=== PATIENT | female | born 1960 | race Caucasian/White ===

== ENCOUNTER 2017-03-29 15:50 | Emergency (ER) | payer BC, OTHER ==
--- NOTE | 2017-03-29 17:04 | EDM.PDOC ---
ED HPI GENERAL MEDICAL PROBLEM - General Chief Complaint: General Stated Complaint: LEFT FOOT PAIN Time Seen by Provider: 03/29/17 15:55 Source of Information: Reports: Patient History Limitations: Reports: No Limitations - History of Present Illness INITIAL COMMENTS - FREE TEXT/NARRATIVE: Patient is a 56-year-old female who is seen in the ER status post left foot injury complains of left foot pain on the medial aspect metatarsal area states that part of a crate fell on her foot at work Onset: Today Duration: Hour(s): Location: Reports: Lower Extremity, Left Quality: Reports: Ache, Throbbing Severity: Mild Improves with: Reports: Other Worsens with: Reports: Movement Context: Reports: Trauma, 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 Left Feet Pain Score (Numeric/FACES): 8 - Related Data Allergies Allergy/AdvReac Type Severity Reaction Status Date / Time codeine Allergy Headache Verified 03/29/17 16:02 Home Meds: Home Meds Methotrexate 5 mg PO MOTU 03/29/17 [History] Methotrexate 5 mg PO TU@12 03/29/17 [History] Propranolol [Inderal] 40 mg PO DAILY 03/29/17 [History] Social & Family History - Tobacco Use Smoking Status *Q: Current Every Day Smoker Years of Tobacco use: 40 Packs/Tins Daily: 1 - Caffeine Use Caffeine Use: Reports: Energy Drinks, Soda - Recreational Drug Use Recreational Drug Use: No ED ROS GENERAL - Review of Systems Review Of Systems: See Below Constitutional: Reports: No Symptoms HEENT: Reports: No Symptoms Respiratory: Reports: No Symptoms Cardiovascular: Reports: No Symptoms Endocrine: Reports: No Symptoms GI/Abdominal: Reports: No Symptoms : Reports: No Symptoms Musculoskeletal: Reports: Foot Pain Skin: Reports: No Symptoms Neurological: Reports: No Symptoms Psychiatric: Reports: No Symptoms ED EXAM, GENERAL - Physical Exam Exam: See Below Exam Limited By: No Limitations General Appearance: Alert, WD/WN, No Apparent Distress Eye Exam: Bilateral Eye: EOMI, PERRL Ears: Normal External Exam, Normal Canal, Hearing Grossly Normal, Normal TMs Ear Exam: Bilateral Ear: Auricle Normal, Canal Normal, TM normal Nose: Normal Inspection, Normal Mucosa, No Blood Throat/Mouth: Normal Inspection, Normal Lips, Normal Teeth, Normal Gums, Normal Oropharynx, Normal Voice, No Airway Compromise Head: Atraumatic, Normocephalic Neck: Normal Inspection, Supple, Non-Tender, Full Range of Motion Respiratory/Chest: No Respiratory Distress, Lungs Clear, Normal Breath Sounds, No Accessory Muscle Use, Chest Non-Tender Cardiovascular: Normal Peripheral Pulses, Regular Rate, Rhythm, No Edema, No Gallop, No JVD, No Murmur, No Rub GI/Abdominal: Normal Bowel Sounds, Soft, Non-Tender, No Organomegaly, No Distention, No Abnormal Bruit, No Mass (Female) Exam: Deferred Rectal (Female) Exam: Deferred Back Exam: Normal Inspection, Full Range of Motion, NT Extremities: Other (Left foot pain with palpation and motion) Neurological: Alert, Oriented, CN II-XII Intact, Normal Cognition, Normal Gait, Normal Reflexes, No Motor/Sensory Deficits Psychiatric: Normal Affect, Normal Mood Skin Exam: Warm, Dry, Intact, Normal Color, No Rash Course - Vital Signs Last Recorded V/S: Last Vital Signs Temp 97.8 F 03/29/17 15:51 Pulse 68 03/29/17 15:51 Resp 16 03/29/17 15:51 BP 137/75 03/29/17 15:51 Pulse Ox 100 03/29/17 15:51 - Orders/Labs/Meds Meds: Medications Discontinued Medications Generic Name Dose Route Start Last Admin Trade Name Sandeep PRN Reason Stop Dose Admin Hydrocodone Bitart/Acetaminophen 1 tab 03/29/17 17:26 03/29/17 17:31 Jackson 325-5 Mg PO 03/29/17 17:27 1 tab ONETIME ONE Administration Departure - Departure Time of Disposition: 17:03 Disposition: Home, Self-Care 01 Condition: Good Clinical Impression: Strain of left foot Qualifiers: Encounter type: initial encounter Qualified Code(s): S96.912A - Strain of unspecified muscle and tendon at ankle and foot level, left foot, initial encounter - Discharge Information Instructions: Acetaminophen; Hydrocodone tablets or capsules, Foot Contusion, [id number] Referrals: Garima Morataya PA [Primary Care Provider] - Forms: ED Department Discharge Care Plan Goals: X-ray obtained reveal no fracture of left foot. soft tissue contusion will send home on a [employer] Walker and hydrocodone/Tylenol 5/325 one tablet every 6 hours as needed for pain. Prescription given. Take with food. 1 tab given in the ER. See work excuse.
[2017-03-29] MEDS ORDERED: Acetaminophen/HYDROcodone 325-5 MG Tab PO ONE (17:26)
== END 2017-03-29 18:00 | disposition home or self-care (01) ==
LOC: LL.ED 15:50
DX: S96.912A Strain of unspecified muscle and tendon at ankle and foot level, left foot, initial encounter (principal); Z88.5 Allergy status to narcotic agent; F17.210 Nicotine dependence, cigarettes, uncomplicated; Z79.899 Other long term (current) drug therapy; W20.8XXA Other cause of strike by thrown, projected or falling object, initial encounter
CPT/HCPCS: 73630; 99283; A9270

== ENCOUNTER 2018-09-15 09:59 | Inpatient (IN) | payer BC ==
[2018-09-15] MEDS ORDERED: Sodium Chloride 0.9% 10 ML Syringe FLUSH PRN (10:00)
[2018-09-15] MEDS ORDERED: Ondansetron 4 MG/2 ML SDV IVPUSH PRN (10:00)
[2018-09-15] MEDS ORDERED: Lactated Ringers 1,000 ML IV SCH (10:00)
[2018-09-15] MEDS ORDERED: Iopamidol 612 MG/ML 100 ML Bottle IVPUSH ONE (10:34)
[2018-09-15] MEDS: Morphine 2 MG/ML Syringe IVPUSH PRN ×2 (10:52→13:07)
[2018-09-15 11:04] LABS: CHLORIDE,CL 100 mmol/L (98-107); SODIUM,NA 137 mmol/L (136-145)
--- NOTE | 2018-09-15 11:13 | PCM.HP ---
H&P History of Present Illness - General Date of Service: 09/15/18 Admit Problem/Dx: Admission Diagnosis/Problem Admission Diagnosis/Problem Obstruction of colon Source of Information: Patient, EMS Notes Reviewed, Family History Limitations: Reports: No Limitations - History of Present Illness Initial Comments - Free Text/Narative: Patient is admitted for abdominal pain, n/v and dehydration. Patient initially presented to the ER at [facility] on weekend of August 20, diagnosed with large bowel obstruction with recommendations to have a colonoscopy. Patient had BM with colonoscopy prep but ended up with constipation again. Was seen in the [place] ER on 09/07/2018 started on reglan as needed and then sent home. The patient is set up for a colonoscopy September 21 in [place] and didnt want one done in [place]. With review of the ER note, patient refused referral to GI at the time of her ER visit. Patient's spouse is concerned as the patient is not eating, has n/v, weight loss and last BM was well over 2 weeks ago. Patient has been using OTC stool softeners, magnesium citrate and miralax without any relief. The patient rates pain 9/10. No fevers Onset of Symptoms: Reports: Gradual Location: Reports: Abdomen Quality: Reports: Sharp Severity: Severe Improves with: Reports: Rest Worsens with: Reports: Movement Associated Symptoms: Reports: Loss of Appetite, Nausea/Vomiting Lower Abdominal Pain Score (Numeric/FACES): 10 - Related Data Allergies/Adverse Reactions: Allergies Allergy/AdvReac Type Severity Reaction Status Date / Time codeine Allergy Headache Verified 03/29/17 16:02 Home Medications: Home Meds Methotrexate 5 mg PO MO@18 03/29/17 [History] Methotrexate 5 mg PO MOTU@08 03/29/17 [History] Propranolol [Inderal] 40 mg PO DAILY 03/29/17 [History] Cholecalciferol (Vitamin D3) [Vitamin D3] 2,000 unit PO DAILY 09/15/18 [History] Multivit with Iron,Minerals [Spectravite Senior] 1 each PO DAILY 09/15/18 [ History] Temazepam [Restoril] 15 mg PO BEDTIME PRN 09/15/18 [History] Past Medical History Cardiovascular History: Reports: Hypertension Gastrointestinal History: Reports: Bowel Obstruction Dermatologic History: Reports: Psoriasis - Past Surgical History GI Surgical History: Reports: Appendectomy Female Surgical History: Reports: Salpingo-Oophorectomy Neurological Surgical History: Reports: Spinal Fusion (spinal fusion through the abdomen) Social & Family History - Family History GI: Reports: Other (See Below) (multiple family members (sisters) with gallbladder disease) - Caffeine Use Caffeine Use: Reports: Energy Drinks, Soda H&P Review of Systems - Review of Systems: Review Of Systems: See Below Free Text/Narrative: Patient complains of generalized abdominal pain, not passing flatus. General: Reports: Weakness, Decreased Appetite, Weight Loss HEENT: Reports: No Symptoms Pulmonary: Reports: No Symptoms Cardiovascular: Reports: No Symptoms Gastrointestinal: Reports: Abdominal Pain, Constipation, Nausea, Vomiting Genitourinary: Reports: No Symptoms Musculoskeletal: Reports: No Symptoms Skin: Reports: No Symptoms Psychiatric: Reports: No Symptoms Neurological: Reports: No Symptoms Hematologic/Lymphatic: Reports: No Symptoms Exam - Exam Exam: See Below - Vital Signs Vital Signs: Last Vital Signs Temp 98.6 F 09/15/18 10:29 Pulse 112 H 09/15/18 10:29 Resp 20 09/15/18 10:29 BP 150/108 H 09/15/18 10:29 Pulse Ox 97 09/15/18 10:29 - Exam General: Alert, Oriented, Mild Distress HEENT: Conjunctiva Clear, Hearing Intact, Pupils Reactive Neck: Supple, Trachea Midline Lungs: Clear to Auscultation, Normal Respiratory Effort Cardiovascular: Regular Rate, Regular Rhythm, Normal S1, Normal S2 GI/Abdominal Exam: No Organomegaly, Distended (abdomen mildly distended), Tender (hyperactive bowel sounds times 4) Back Exam: Normal Inspection, Full Range of Motion Extremities: Normal Inspection, Normal Range of Motion, Non-Tender, No Pedal Edema, Normal Capillary Refill Peripheral Pulses: 2+: Dorsalis Pedis (L), Dorsalis Pedis (R) Skin: Warm, Dry, Intact (dry mucous membranes) Neurological: Cranial Nerves Intact, Reflexes Equal Bilateral, Strength Equal Bilateral Neuro Extensive - Mental Status: Alert, Oriented x3, Normal Mood/Affect, Normal Cognition, Memory Intact Neuro Extensive - Motor, Sensory, Reflexes: CN II-XII Intact, Normal Gait, Normal Reflexes Psychiatric: Alert, Normal Affect, Normal Mood - Patient Data Lab Results Last 24 hrs: Laboratory Results - last 24 hr 09/15/18 Range/Units 10:32 WBC 11.3 H (4.0-10.2) K/uL RBC 4.61 (3.77-5.09) M/uL Hgb 15.1 (11.7-15.5) g/dL Hct 43.7 (34.0-46.0) % MCV 94.8 (84.0-98.0) fL MCH 32.8 (28.2-33.3) pg MCHC 34.6 (31.7-36.0) g/dL RDW 13.9 (11.2-14.1) % Plt Count 216 (150-350) K/uL Neut % (Auto) 83.7 H (45.0-80.0) % Lymph % (Auto) 11.5 (10.0-50.0) % Whitman % (Auto) 4.2 (2.0-14.0) % Eos % (Auto) 0.4 (0.0-5.0) % Baso % (Auto) 0.2 (0.0-2.0) % Neut # (Auto) 9.48 H (1.40-7.00) K/uL Lymph # (Auto) 1.30 (0.50-3.50) K/uL Whitman # (Auto) 0.48 (0.00-1.00) K/uL Eos # (Auto) 0.04 (0.00-0.50) K/uL Baso # (Auto) 0.02 (0.00-0.20) K/uL Result Diagrams: 09/15/18 10:32 09/15/18 10:32 - Problem List (1) Bowel obstruction SNOMED Code(s): 72594157 ICD Code: K56.609 - UNSP INTESTNL OBST, UNSP TO PARTIAL VERSUS COMPLETE OBST Status: Acute Priority: High Qualifiers: Intestinal obstruction type: other intestinal obstruction (2) Dehydration SNOMED Code(s): 22559185 ICD Code: E86.0 - DEHYDRATION Status: Acute (3) Nausea & vomiting SNOMED Code(s): 95023422 ICD Code: R11.2 - NAUSEA WITH VOMITING, UNSPECIFIED Status: Acute Problem List Initiated/Reviewed/Updated: Yes Orders Last 24hrs: Active Orders 24 hr Category Date Time Status Patient Status [ADT] Routine ADT 09/15/18 10:00 Active Ambulate [RC] ASDIRECTED Care 09/15/18 10:00 Active Antiembolic Devices [RC] PER UNIT ROUTINE Care 09/15/18 10:05 Active Communication Order [RC] ROUTINE Care 09/15/18 10:08 Active Intake and Output [RC] QSHIFT Care 09/15/18 10:01 Active May Shower [RC] ASDIRECTED Care 09/15/18 10:00 Active Oxygen Therapy [RC] PRN Care 09/15/18 10:00 Active Peripheral IV Care [RC] . DIRECTED Care 09/15/18 10:05 Active VTE/DVT Education [RC] PER UNIT ROUTINE Care 09/15/18 10:00 Active Vital Signs [RC] Q4H Care 09/15/18 10:00 Active Nothing per Oral Now Diet [DIET] Diet 09/15/18 Breakfast Active Abdomen 2V AP Flat Upright [CR] Routine Exams 09/15/18 10:00 Ordered Abdomen Pelvis w wo Cont [CT] Routine Exams 09/15/18 10:07 Ordered AMYLASE [CHEM] Routine Lab 09/15/18 10:32 Received C-REACTIVE PROTEIN [CHEM] Routine Lab 09/15/18 10:32 Received COMPREHENSIVE METABOLIC PN,CMP [CHEM] Routine Lab 09/15/18 10:32 Received CULTURE URINE [RM] Stat Lab 09/15/18 10:00 Ordered LIPASE [CHEM] Routine Lab 09/15/18 10:32 Received UA W/MICROSCOPIC [URIN] Routine Lab 09/15/18 10:00 Ordered Lactated Ringers [Ringers, Lactated] 1,000 ml Med 09/15/18 10:00 Active IV ASDIRECTED Morphine Med 09/15/18 10:00 Active 2 mg IVPUSH Q2H PRN Ondansetron [Zofran] Med 09/15/18 10:00 Active 4 mg IVPUSH Q6H PRN Propranolol Med 09/16/18 08:00 Ordered 40 mg PO DAILY Sodium Chloride 0.9% [Saline Flush] Med 09/15/18 10:00 Active 10 ml FLUSH ASDIRECTED PRN Antiembolic Hose [OM.PC] Per Unit Routine Oth 09/15/18 10:01 Ordered Peripheral IV Insertion Adult [OM.PC] Routine Oth 09/15/18 10:00 Ordered Resuscitation Status Routine Resus Stat 09/15/18 10:00 Ordered Medication Orders Lactated Ringer's (Ringers, Lactated) 1,000 mls @ 125 mls/hr IV ASDIRECTED ESA Last Admin: 09/15/18 10:52 Dose: 125 mls/hr Morphine Sulfate (Morphine) 2 mg IVPUSH Q2H PRN PRN Reason: Pain (severe 7-10) Last Admin: 09/15/18 10:52 Dose: 2 mg Non-Formulary Medication (Propranolol) 40 mg PO DAILY ESA Ondansetron HCl (Zofran) 4 mg IVPUSH Q6H PRN PRN Reason: Nausea/Vomiting Last Admin: 09/15/18 10:52 Dose: 4 mg Sodium Chloride (Saline Flush) 10 ml FLUSH ASDIRECTED PRN PRN Reason: Keep Vein Open Assessment/Plan Comment:: Patient refused to go to [place] initially as she was in [place] at the ER last week and got sent home. Admitted to the hospital for IV fluids and repeat CT scan on abd/pelvis with findings noted severe colon obstruction, patient is needing to be transferred to [place] for GI and surgeon workup. Discussed with the patient and spouse and agreed to the transfer. Talked to Dr Small at [facility] who accepted the patient. transfer by ambulance due to IV fluids and needing antiemetic and pain medications. Shelly Ascencio,SURTASS ANALYST
[2018-09-16] MEDS ORDERED: Propranolol 20 MG Tab PO SCH (08:00)
== END 2018-09-15 14:45 | DRG 247 ==
LOC: LL.MS 10:12
PROVIDERS: ADMIT Family Medicine; ATTEND Family Medicine
DX: K56.609 Unspecified intestinal obstruction, unspecified as to partial versus complete obstruction (principal); E86.0 Dehydration; I10 Essential (primary) hypertension; Z88.6 Allergy status to analgesic agent; Z79.899 Other long term (current) drug therapy; Z98.1 Arthrodesis status
CPT/HCPCS: 36415; 74019; 74177; 80053; 81001; 82150; 83690; 85025; 86140; 87086; J2270; J2405; J7120; Q9967

== ENCOUNTER 2019-11-11 07:58 | Day surgery (SDC) | payer BC ==
[~2019-11-11 07:58] MED LIST: Lactated Ringers 1,000 ML IV SCH; Sodium Chloride 0.9% 10 ML Syringe FLUSH PRN
[2019-11-11] MEDS ORDERED: Midazolam 1 MG/ML 2 ML SDV ONE ×2 (08:29→09:00)
[2019-11-11] MEDS ORDERED: Propofol 200 MG/20 ML SDV ONE ×2 (08:29→09:00)
--- NOTE | 2019-11-11 09:08 | PCM.PN ---
- General Info Date of Service: 11/11/19 - Review of Systems Systems Review Comment:: 59-year-old female here for colonoscopy. She has had change in bowel pattern with increasing constipation. She is also had a prior colon resection for obstruction and has not had a prior complete colonoscopy. She is medically stable to proceed today. Her recent history and physical is reviewed and no significant changes are noted. I have discussed the proposed colonoscopy with the patient. Risks such as but not limited to bleeding and GI injury reviewed. She agrees to proceed. - Patient Data Vitals - Most Recent: Last Vital Signs Temp 97.5 F 11/11/19 08:43 Pulse 68 11/11/19 08:43 Resp 18 11/11/19 08:43 BP 142/81 H 11/11/19 08:43 Pulse Ox 97 11/11/19 08:43 Weight - Most Recent: 74.389 kg Med Orders - Current: Current Medications Lactated Ringer's (Ringers, Lactated) 1,000 mls @ 125 mls/hr IV ASDIRECTED ESA Last Admin: 11/11/19 08:34 Dose: 125 mls/hr Documented by: Sodium Chloride (Saline Flush) 10 ml FLUSH ASDIRECTED PRN PRN Reason: Keep Vein Open Discontinued Medications Midazolam HCl (Versed 1 Mg/Ml) Confirm Administered Dose 2 mg .ROUTE .STK-MED ONE Stop: 11/11/19 08:30 Propofol (Diprivan 20 Ml) Confirm Administered Dose 200 mg .ROUTE .STK-MED ONE Stop: 11/11/19 08:30 Sepsis Event Note - Focused Exam Vital Signs: Vital Signs Temp Pulse Resp BP Pulse Ox 11/11/19 08:43 97.5 F 68 18 142/81 H 97 - Problem List Review Problem List Initiated/Reviewed/Updated: Yes - Assessment Assessment:: Change in bowel pattern Complete colon cancer screening - Plan Plan:: Colonoscopy
--- NOTE | 2019-11-11 09:44 | PCM.OPNOTE ---
- General Post-Op/Procedure Note Date of Surgery/Procedure: 11/11/19 Operative Procedure(s): Incomplete Colonoscopy to Sigmoid Anastomosis Findings: Anastomotic Stricture preventing advancement of the scope past that point Pre Op Diagnosis: Colon Cancer Screening Post-Op Diagnosis: Sigmoid Colon Anastomotic Stricture Anesthesia Technique: MAC Primary Surgeon: Eliseo Rachel Pathology: none EBL in mLs: 0 Complications: None Condition: Good
--- NOTE | 2019-11-11 12:34 | OR ---
Date of Procedure: 11/11/2019 PREOPERATIVE DIAGNOSIS: Colon cancer screening with change in bowel pattern. POSTOPERATIVE DIAGNOSIS: Anastomotic stricture. OPERATION PERFORMED: Incomplete colonoscopy to sigmoid anastomotic stricture. INDICATIONS FOR SURGERY: This 59-year-old female is here for full colonoscopy. She underwent a sigmoid colon resection approximately a year ago and has never had a complete colonoscopy. She has also noted difficulty with constipation. FINDINGS: At approximately the 15 cm level, the patient's anastomosis was clearly identified and there is a significant stricture noted at this level. This stricture is too small to even allow the pediatric colonoscope to pass. No mass is identified, and the mucosa of the rectum distal to the stricture appeared normal as did the visualized mucosa proximal to the stricture as seen looking through the stricture. DESCRIPTION OF PROCEDURE: The patient was taken to the operating room. She was given intravenous sedation and with her in the left lateral decubitus position, a digital rectal exam was performed showing no rectal masses. The Olympus colonoscope was inserted into the rectum and retroflexed examination of the rectal canal was performed. The scope was then advanced to the region of the anastomosis approximately 15 cm from the anal verge and the anastomosis was clearly visualized. An attempt was made to pass the adult colonoscope through the anastomotic stricture, but the stricture was too narrow and would not allow the scope to pass. A pediatric colonoscope was then selected. It was inserted into the rectum and advanced under direct visualization to the level of the stricture. Even the pediatric scope would not advance past the stricture as the stricture was too narrow to allow this to traverse it. With the available scopes not able to pass through the stricture, the scope was removed and the patient was taken from the operating room in satisfactory condition. ESTIMATED BLOOD LOSS: Zero. COMPLICATIONS: None. PROGNOSIS: Good. COMMENT: The patient will need referral to Gastroenterology for dilation of the anastomotic stricture and then complete completion colonoscopy. DUSTIN Rachel MD /[id number]
== END 2019-11-11 10:35 | disposition home or self-care (01) ==
LOC: LL.SDS 07:58
PROVIDERS: ATTEND Surgery
DX: K94.09 Other complications of colostomy (principal); K59.00 Constipation, unspecified; G47.00 Insomnia, unspecified; I10 Essential (primary) hypertension; K56.609 Unspecified intestinal obstruction, unspecified as to partial versus complete obstruction; F17.210 Nicotine dependence, cigarettes, uncomplicated; Z90.49 Acquired absence of other specified parts of digestive tract; Z86.010 Personal history of colon polyps; Z88.5 Allergy status to narcotic agent; Z79.899 Other long term (current) drug therapy
CPT/HCPCS: 45330; J2250; J2704; J7120; 00812